=== PATIENT | male | born 1980 | race Caucasian/White ===

== ENCOUNTER 2017-12-05 11:43 | Emergency (ER) | payer OTHER ==
[~2017-12-05] VITALS: Ht 167.6 cm; Wt 77.1 kg
[~2017-12-05 11:43] MED LIST: VISTARIL50 MG PO
== END 2017-12-05 14:25 | disposition home or self-care (01) ==
LOC: ER 11:43
DX: R00.0 Tachycardia, unspecified (principal); F06.4 Anxiety disorder due to known physiological condition